=== PATIENT | female | born 1970 | race African-American/Black ===

== ENCOUNTER 2018-08-01 21:40 | Emergency (ER) | payer MEDICAID ==
[~2018-08-01] VITALS: Ht 170.2 cm; Wt 77.0 kg
[~2018-08-01 21:40] MED LIST: CYCL7.5T25; LORA2TAB95; LORAZEPAM PO; MECL-109; MECLIZINE PO; ONDA4FIL5; PRIL10 PO; PSEU30TA35; TRIA1CAP35 PO; ZOFRAN; [UNRECOGNIZED DRUG - CODE]
[2018-08-01] MEDS ORDERED: IBUPROFEN 400MG TABLET PO ONE (22:45)
[2018-08-02 02:11] VITALS: BP 127/79
== END 2018-08-02 02:17 | disposition home or self-care (01) ==
LOC: ER 21:40
DX: S89.81XA Other specified injuries of right lower leg, initial encounter (principal); R07.89 Other chest pain; V49.40XA Driver injured in collision with unspecified motor vehicles in traffic accident, initial encounter; Y93.89 Activity, other specified; Y92.414 Local residential or business street as the place of occurrence of the external cause
CPT/HCPCS: 71045; 73562; 99283

== ENCOUNTER 2021-11-29 15:49 | Emergency (ER) | payer MEDICAID ==
[~2021-11-29] VITALS: Ht 167.6 cm; Wt 75.0 kg
[~2021-11-29 15:49] MED LIST changes: -MECL-109; +MECL-159
[2021-11-29 16:02] VITALS: BP 149/97
[2021-11-29 16:48] LABS: BASOPHILS % 0.4 % (0.0-2.0); EOSINOPHILS % 5.1 % (0.0-5.0); HEMATOCRIT. 35.3 % (36.0-48.0); LYMPHOCYTES % 20.9 % (20.0-50.0); MEAN CORPUSCULAR HEMOGLOBIN 30.6 pg (28.0-32.0); MEAN CORPUSCULAR VOLUME 90.5 fL (81.0-99.0); MEAN PLATELET VOLUME 9.3 fl (7.4-10.4); MONOCYTES % 4.8 % (2.0-8.0); NEUTROPHILS % 68.8 % (40.0-76.0); PLATELET 271 x1000/uL (130-400); RED BLOOD CELL COUNT 3.91 mill/uL (4.2-5.4); RED CELL DISTRIBUTION WIDTH 12.9 % (11.6-14.6)
[2021-11-29 17:21] LABS: CHLORIDE 105 mEq/L (98-107)
[2021-11-29] MEDS ORDERED: SODIUM CHLORIDE 0.9% 1,000 ML IV ONE (18:30)
[2021-11-29] MEDS ORDERED: POTASSIUM CHLORIDE 20MEQ TABLET SR PO NR (18:30)
[2021-11-29 20:59] LABS: CLARITY URINE CLEAR (CLEAR); COLOR URINE YELLOW (YELLOW); KETONES URINE NEGATIVE (NEGATIVE); LEUKOCYTE ESTERASE URINE 2+ (NEGATIVE); NITRITE URINE NEGATIVE (NEGATIVE); OCCULT BLOOD URINE NEGATIVE (NEGATIVE); PH URINE 6.5 (4.5-8.0); PROTEIN URINE NEGATIVE (NEGATIVE); SPECIFIC GRAVITY URINE 1.013 (1.005-1.030)
== END 2021-11-29 22:00 | disposition home or self-care (01) ==
LOC: ER 15:49
DX: R42 Dizziness and giddiness (principal); E87.6 Hypokalemia; R07.89 Other chest pain; R03.0 Elevated blood-pressure reading, without diagnosis of hypertension; Z86.69 Personal history of other diseases of the nervous system and sense organs
CPT/HCPCS: 36415; 71045; 80053; 81003; 83735; 85025; 93005; 99285